=== PATIENT | male | born 1950 | race Caucasian/White ===

== ENCOUNTER 2024-04-05 14:24 | Emergency (ER) | payer MEDICARE, OTHER, SELFPAY ==
[2024-04-05 14:27] VITALS: BP 165/102
--- NOTE | 2024-04-05 14:48 | ED.GENMED ---
History of Present Illness
General
Chief Complaint: Skin Surface Trauma
Time Seen by Provider: 04/05/24 14:36
History of Present Illness
History of Present Illness:
73-year-old male presents the emergency department for evaluation of a minor laceration to the midline parietal scalp, was working in his garage, stood up on a stepladder and struck his head on the garage door track. He denies any headache or loss
of consciousness. No vision changes, nausea, or vomiting. Not on anticoagulants and antiplatelets
Past History
Past History
ED Past Medical History: Asthma and Other (elevated PSA)
Social History
Tobacco: Non-smoker
Personal:
Living: with family
Employment: Employed
Review of Systems
Review of Systems
Allergies reviewed?: Yes
All Other Systems: ROS reviewed and negative except as documented in HPI and ROS
Phy Exam
Physical Exam
Physical Exam:
GEN: Well appearing, NAD, WDWN
HEENT: 2 cm partial-thickness laceration to the midline parietal scalp with no active bleeding; oral mucosa moist, no scleral icterus
Cardiac: Regular rate
Lung: No respiratory distress, no tachypnea
MSK: No gross deformity or injuries
Skin: Good color, no pallor or jaundice, no rashes
Neuro: AO x3, moves all extremities freely
Psych: Calm, cooperative
Course
Vital Signs
Initial and Last Documented VS:
Initial Vital Signs
Temp Pulse Resp BP Pulse Ox
98.3 F 76 18 165/102 97
04/05/24 14:27 04/05/24 14:27 04/05/24 14:04/05/24 14:27 04/05/24 14:27
Last Documented Vital Signs
Temp Pulse Resp BP Pulse Ox
98.3 F 76 18 165/102 97
04/05/24 14:27 04/05/24 14:27 04/05/24 14:27 04/05/24 14:27 04/05/24 14:27
MDM/Problems Addressed
MDM/Problems Addressed:
No need for primary closure of the laceration, neurologically exam is unremarkable, minor mechanism of trauma no indication for CT of the head
*Critical Care Note
Total Time (30-74mins, 75-104mins- exclusive of procedures): Not Applicable
ED Attending Note
-
Portions of this chart may have been created with voice recognition software.� Occasional wrong word or��sound alike� substitutions may have occurred due to the inherent limitations of voice recognition software.
Discharge Plan
Departure
Patient Disposition: Home (Routine Discharge)
Date of Disposition: 04/05/24
Time of Disposition: 14:48
Patient with high blood pressure during this ER visit?: No
Discharge Problem:
Laceration of scalp
Instructions: Wound Care (DC)
Prescriptions:
No Action
fluticasone propion-salmeterol [Advair Diskus] 250-50 mcg/dose Blister With Device
1 inh INHALATION DAILY
ascorbic acid (vitamin C) [Vitamin C] 500 mg Tablet
500 mg PO DAILY
zafirlukast 20 mg Tablet
20 mg PO DAILY
albuterol sulfate [ProAir HFA] 90 mcg/actuation Hfa Aerosol Inhaler
1 puff INHALATION PRN PRN (Reason: ASTHMA)
loratadine 10 mg Tablet
10 mg PO DAILY
cholecalciferol (vitamin D3) [Vitamin D3] 25 mcg (1,000 unit) Tablet
25 mcg PO DAILY
Referrals:
Esteban Ulloa I., DO [Family Provider] -
Activity Restrictions/Additional Instructions:
Keep the area dry for 24 hours then you may wash
Gently clean with soap and water tomorrow
Hold pressure with any further bleeding
Interventions
Interventions:
*Risk Screen - Suicide Last Done: 04/05/24 14:27
*General Assessment Last Done: 04/05/24 14:27
*Neglect/Abuse Screening Last Done: 04/05/24 14:27
ED- Fall Risk Assessment Last Done: 04/05/24 14:42
*ED COVID-19 Vaccine History Last Done: 04/05/24 14:27
*Nursing Disposition Last Done: 04/05/24 14:56
ED-Skin Assessment Last Done: 04/05/24 14:54
Discharge Date and Time
Discharge Date/Time: 04/05/24 14:56
Print Language: [facility]
[2024-04-05 14:51] VITALS: BMI 25.2
== END 2024-04-05 14:56 | disposition home or self-care (01) ==
LOC: EMR 14:24
PROVIDERS: EMERGENCY PHYSICIAN Emergency Medicine; FAMILY PHYSICIAN Internal Medicine
DX: S01.01XA Laceration without foreign body of scalp, initial encounter (principal); W22.09XA Striking against other stationary object, initial encounter
CPT/HCPCS: 99282

== ENCOUNTER → 2024-12-01 10:47 | Outpatient (REF) | payer MEDICARE, OTHER, SELFPAY | LOC: RAD 10:47 | PROVIDERS: ATTENDING PHYSICIAN Internal Medicine | DX: M85.80 Other specified disorders of bone density and structure, unspecified site (principal); M85.89 Other specified disorders of bone density and structure, multiple sites | CPT/HCPCS: 77080 ==